=== PATIENT | female | born 1955 | race Caucasian/White ===

== ENCOUNTER 2025-06-28 12:32 | Outpatient (CLI) | payer OTHER | END 2025-06-28 12:33 | disposition home or self-care (01) | LOC: BICCT 12:32 | PROVIDERS: ATTEND Internal Medicine Cardiovascular Disease | DX: Z13.6 Encounter for screening for cardiovascular disorders (principal); Z82.49 Family history of ischemic heart disease and other diseases of the circulatory system; I25.10 Atherosclerotic heart disease of native coronary artery without angina pectoris; I25.83 Coronary atherosclerosis due to lipid rich plaque | CPT/HCPCS: 75571 ==